=== PATIENT | female | born 1955 | race Caucasian/White ===

== ENCOUNTER → 2018-12-24 | Outpatient (CLI) | payer OTHER ==
[~2018-12-24] MED LIST: ALLEGRA180 MG PO; AMBIEN 10 MG TA10 MG; AMBIEN 10 MG TA10 MG PO; CHANTIX1 MG PO; CLOBETASOL PROP60 G3 TOP; DIAZEPAM 5 MG5 M1; ENDOCET 10-3251 EACH PO; FLONASE 0.05%50 MCG NS; GLUCOPHAGE1000 MG; GLUCOPHAGE1000 MG PO; HYDROCHLOROTHIA25 M1; HYDROCHLOROTHIA25 M1 PO; HYDROCODON-ACE1 EAC7; HYDROCODON-ACE1 EACH PO; HYDROXYZINE HCL10 M1 PO; LISINOPRIL10 MG PO; LISINOPRIL20 MG; NEURONTIN800 MG PO; NORCO 10-325 T1 EACH PO; NORCO 5-325 TA1 EACH PO; OXYCODONE HCL15 MG; OXYCONTIN20 M1; OXYCONTIN20 M1 PO; OXYCONTIN40 MG; OXYCONTIN40 MG PO; PROZAC 20 MG20 M1 PO; TIZANIDINE HCL 22 M1 PO; VOLTAREN GEL 1100 G1 TOP; WELLBUTRIN SR150 MG PO; ZOCOR 20 MG TAB20 M1 PO
== END ==
LOC: RAD 10:56
DX: M47.816 Spondylosis without myelopathy or radiculopathy, lumbar region (principal); M48.061 Spinal stenosis, lumbar region without neurogenic claudication; M43.16 Spondylolisthesis, lumbar region